=== PATIENT | male | born 1965 | race Caucasian/White ===

== ENCOUNTER → 2023-07-11 15:53 | Outpatient (REF) | payer OTHER, SELFPAY | LOC: PAVMRI 15:53 | PROVIDERS: ATTENDING PHYSICIAN Pain Medicine Interventional Pain Medicine; FAMILY PHYSICIAN Internal Medicine | DX: M54.16 Radiculopathy, lumbar region (principal) | CPT/HCPCS: 72148 ==

== ENCOUNTER 2023-09-25 06:15 | Inpatient (IN) | payer OTHER, SELFPAY ==
--- NOTE | 2023-09-07 09:51 | CM ---
Patient is scheduled for lumbar spine surgery on 09/25/23. Spoke with patient prior to surgery via telephone. Introduced role of the Orthopedic Navigator. Patient reports that he lives with his and adult daughter. He currently functions
independently. He occasionally uses a cane and also has a rolling walker, shower seat and grab bars in the shower and around toilet. He has never had VN services. PCP is Chadwick Coker.
Discussed orthopedic program, post surgical plans and tentative plan for patient to return home when directed by surgeon. Patient is in agreement with tentative plan and will have support from his and daughter when he goes home.
Plan: Orthopedic Navigator will remain available to assist with the care of patient and will reassess discharge needs after surgery.
[2023-09-19 14:04] VITALS: BMI 32.0
[2023-09-19 14:54] LABS: Hematocrit 49.5 % (39.0-52.0); Hemoglobin 17.1 g/dL (13.0-18.0); Mean Corp Hgb Conc. 34.5 g/dL (33.0-37.0); Mean Corpuscular Hgb 30.8 pg (27.0-31.0); Mean Corpuscular Volume 89.2 fL (80.0-94.0); Mean Platelet Volume 9.7 fL (7.4-10.4); Platelet Count 286 10^3/uL (130-400); Red Blood Cell Count 5.55 10^6/uL (4.70-6.10); Red Cell Dist. Width 13.2 % (11.5-14.5); White Blood Cell Count 9.7 10^3/uL (4.8-10.8)
[2023-09-19 15:01] VITALS: BMI 32.0
[2023-09-19 15:05] LABS: INR 0.95; PT 12.7 Sec (11.4-14.6)
[2023-09-19 15:10] LABS: ALT (SGPT) 33 U/L (0-50); AST (SGOT) 36 U/L (17-59); Albumin 4.9 g/dl (3.5-5.0); Alkaline Phosphatase 51 U/L (38-126); Blood Urea Nitrogen 16 mg/dl (9-20); Carbon Dioxide 27 mmol/L (22-30); Chloride 95 mmol/L (98-107); Estimated Creatinine Clearance 54 ml/min; Glucose 89 mg/dl (70-99); Potassium 4.3 mmol/L (3.5-5.1); Sodium 136 mmol/L (135-145); Total Bilirubin 0.7 mg/dl (0.2-1.3); Total Protein 7.2 g/dl (6.3-8.2); eGFR 46.73
[2023-09-25] VITALS (12 sets, daily range): BP systolic 113–147; BP diastolic 38–90; BMI 32.0
[2023-09-25] MEDS: LYRICA 150 MG PO (11:34)
[2023-09-25] MEDS: SKELAXIN 800 MG PO ×2 (11:35→19:52)
[2023-09-25] MEDS: TYLENOL 1000 MG PO ×2 (11:35→17:39)
[2023-09-25] MEDS: NORMOSOL-R 1000 IV (11:39)
--- NOTE | 2023-09-25 16:12 | W.PN.UPDATE ---
Update Note
Progress Note Update
Orthopedic Surgery Post-op Note:
Patient is s/p L2-3 laminectomy and microdiscectomy. Waking up in PACU, following commands. Moving feet. Sensation intact in BL LE. May get up as tolerated with assistance. PT/OT. DVT ppx with SCDs (no anticoagulation for 24 hrs post-op). Pain
control. Gaines to be removed within 24 hrs post-op.�
[2023-09-25] MEDS: DILAUDID 0.5 MG IV (16:55)
[2023-09-25] MEDS: DILAUDID 0.25 MG IV (17:20)
[2023-09-25] MEDS: NSS 1000 IV (17:21)
[2023-09-25] MEDS: LIPITOR 10 MG PO (17:40)
[2023-09-25] MEDS: ROXICODONE 5 MG PO (17:40)
--- NOTE | 2023-09-25 18:18 | PTCARENOTE ---
1730: Patient arrived to 2S. Full head to toe assessment completed. Neurovascular assessment completed. Aquacell on lower back clean dry and intact. IVF running per order. 2L NC with SpO2 greater then 92%. Family at bedside. Call arenas within reach
and bed in lowest position.
[2023-09-25] MEDS: SENOKOT 17.1999999999999993 MG PO (19:52)
[2023-09-25] MEDS: COLACE 100 MG PO (19:52)
--- NOTE | 2023-09-25 21:02 | OR.RPT ---
Operative Report
Operative Report
Orthopedic Surgery Operative Report
Date of Surgery: 09/25/23
PREOPERATIVE DIAGNOSES:
1. Lumbar spinal stenosis and disc herniation with radiculopathy, L2-3
POSTOPERATIVE DIAGNOSES:
1. Lumbar spinal stenosis and disc herniation with radiculopathy, L2-3
PROCEDURE PERFORMED:
1. L2-3 laminectomy and decompression with microdiscectomy
SURGEON: Dalton De Leon D.O.
DETECTIVE PRIVATE EYE: ELMER Bianchi, who helped with patient and limb positioning and retraction
ANESTHESIA: General endotracheal
COMPLICATIONS: None
ESTIMATED BLOOD LOSS: 20 cc
DRAINS: None
SPECIMEN: L2-3 disc material sent to pathology
IMPLANTS: None
INDICATION FOR SURGERY: This patient has an ongoing history of left lower extremity radiculopathy. Evaluation shows that the patient has the aforementioned diagnoses. The patient has failed extensive nonsurgical treatment and has elected to undergo
the aforementioned surgical procedures. The risks, benefits, alternatives, and indications were discussed with the patient in detail. The risks include, but are not limited to bleeding requiring transfusion, infection, need for reoperation, nerve or
blood vessel damage, anesthetic risks, need for further surgery, continued pain, blood clots in the legs, heart attack, stroke, , dural tear, nerve root injury, numbness, weakness, paralysis. The patient understands the risks and elected to
proceed. Informed consent was obtained preoperatively. The patient was optimized medically prior to surgery.
PROCEDURE IN DETAIL: The patient was identified in the preoperative holding area. The surgical site was appropriately marked. The patient was then brought to the operating room. General endotracheal anesthesia was achieved. The patient was
given routine preoperative intravenous antibiotics. The patient was turned to the prone position. Great care was taken to pad and protect all extremities and pressure points. The incision site was marked using fluoroscopy. The patient was prepped
and draped in the usual sterile manner. A preoperative surgical time-out was taken.
A standard midline approach to the lumbar spine was performed. The dissection was carried out to the spinal lamina. Dissection was then carried out laterally to expose the medial aspects of the facets. Xray was obtained to confirm levels.
Laminectomy was then carried out at L2-3. A partial left medial facetectomy was carried out. Hypertrophic ligamentum flavum was removed. The thecal sac and traversing nerve root were retracted and the disc herniation was encountered. The disc space
was incised using an 11-blade. Disc material was then removed and sent to lab as a specimen. After the offending disc was removed, the disc space was irrigated. The decompression was once again checked and both the thecal sac and traversing root
were found to be adequately decompressed.
The surgical site was copiously irrigated. 40mg of kennalog was placed over the thecal sac and traversing root at L2-3. The muscle and fascia were approximated using vicryl suture. Vancomycin powder was placed. The deep and superficial subcutaneous
tissues were closed using vicryl suture. Skin was approximated with monocryl suture. Dermabond was applied. A sterile dressing was placed. The patient was turned to the supine position and awoken from anesthesia. The patient tolerated the procedure
well with no immediate complications.
Throughout the surgery, neuromonitoring was used. All counts were correct at the end of the surgery.
Dalton De Leon D.O.
Orthopedic Surgery
[2023-09-25] MEDS: ANCEF 5 IV (22:15)
[2023-09-25] MEDS: LYRICA 75 MG PO (22:24)
[2023-09-26] MEDS: TYLENOL 1000 MG PO ×3 (00:27→12:37)
[2023-09-26] MEDS: ROXICODONE 10 MG PO ×3 (00:32→12:38)
[2023-09-26] MEDS: SKELAXIN 800 MG PO (03:26)
[2023-09-26 03:30] VITALS: BP 148/70
[2023-09-26] MEDS: ANCEF 5 IV (05:39)
[2023-09-26] MEDS: NSS 1000 IV (05:39)
[2023-09-26 05:45] VITALS: BMI 32.0
[2023-09-26 07:02] LABS: Hematocrit 47.1 % (39.0-52.0); Hemoglobin 16.3 g/dL (13.0-18.0)
[2023-09-26 07:32] LABS: Blood Urea Nitrogen 17 mg/dl (9-20); Calcium 9.3 mg/dl (8.4-10.2); Carbon Dioxide 24 mmol/L (22-30); Chloride 101 mmol/L (98-107); Estimated Creatinine Clearance 77 ml/min; Glucose 117 mg/dl (70-99); Potassium 4.6 mmol/L (3.5-5.1); Sodium 135 mmol/L (135-145); eGFR > 60.00
[2023-09-26 07:40] VITALS: BP 143/72
--- NOTE | 2023-09-26 07:43 | CM ---
Addendum entered by Nallely Walker 09/26/23 10:23:
Patient did well in therapy. He has no concerns about going home.
Original Note:
Reviewed chart and held rounds with PT, OT and RN. Patient had planned lumbar spine surgery with Dr. De Leon on 09/24. Met with patient at bedside. Confirmed information previously obtained for assessment and discussed discharge plans. Patient
continues to plan to return home at discharge. He will have support from his and daughter when he goes home. Reviewed that he will work with PT/OT this morning and that discharge needs will depend on his functional status. However, no needs
currently identified.
Patient has a cane, shower seat, back brace and rolling walker at home.
Patient will use [facility] pharmacy for discharge prescriptions.
[2023-09-26] MEDS: COLACE 100 MG PO (08:16)
[2023-09-26] MEDS: TOPROL XL 50 MG PO (08:16)
[2023-09-26] MEDS: SENOKOT 17.1999999999999993 MG PO (08:16)
[2023-09-26 09:55] VITALS: BP 131/71; BP 138/85; PULSE 76; O2SAT 97
--- NOTE | 2023-09-26 10:08 | W.PN.ORTHO ---
Today's Communication / Plan
-
d/c
Assessment
.
Distal Motor Intact: Yes
Dressing:
Clean, dry and intact.
Assessment:
PERNELL on PAT labs--counselled patient pre-op re: minimizing Ultram dose to <400mg/24h, hydration, no NSAIDs and decreasing protein nutritional supplements
--renal function back to baseline
Plan
.
Surgery / Date: L2-3 lami decompression w/ micro -Dr. De Leon 09/24
Activity:
Out of bed.
PT/OT
Discharge Plan: Home
Subjective
.
.:
Patient resting comfortably.
Vital Signs and Labs
.
Vital Signs and Labs:
Lab Results
09/26/23 06:13
09/26/23 06:13
Temp Pulse Resp BP Pulse Ox
98.8 F 78 18 143/72 97
09/26/23 07:40 09/26/23 07:40 09/26/23 07:40 09/26/23 07:40 09/26/23 07:40
PT 12.7 Sec (11.4-14.6) 09/19/23 13:57
INR 0.95 09/19/23 13:57
Physical Exam
-
HEENT: No pallor, cyanosis, or jaundice. Throat clear.
NECK: Supple. No JVD.
RESPIRATORY: Lungs clear to auscultation.
CVS: S1, S2 normal. RRR.� No murmur, rub or gallop.
ABDOMEN: Soft, non-tender. No distension. BS+/normal.
EXTREMITIES: strength equal, no calf pain with palpation
SUSPECT ARTIST: AOx3. No focal deficits. wire weaver helper grossly intact
[2023-09-26 10:10] VITALS: BP 149/85; PULSE 77; O2SAT 97
--- NOTE | 2023-09-26 10:26 | W.DS.TRANS ---
DC Summary - Scalp Treatment Specialist
-
Discharge Instructions:
Sleep Apnea Risk Intermediate
Discharge Diagnosis/Procedures L2-3 lami decompression w/ nolan -Dr. De Leon /
23
Diet As tolerated
Driving Restrictions No driving
Instructions:
Stand-Alone Forms: [facility] Lumbar Spine DC Instr
Changes to Home Medications: Yes
Discharge Medications:
DC Medications w/original date entered in [facility]
atorvastatin 10 mg tablet 10 mg PO DAILY High Cholesterol 09/26/22
baclofen 10 mg tablet 10 mg PO DAILY Muscle Spasms 09/26/22
metoprolol succinate 100 mg tablet,extended release 24 hr 100 mg PO DAILY Heart Failure 09/26/22
loratadine 10 mg tablet (Claritin) 10 mg PO DAILY Allergies 09/13/23
mupirocin 2 % topical ointment 1 applic topical BID infection prevention #1 tube 09/19/23
Saccharomyces boulardii 250 mg capsule (Florastor) 250 mg PO BID #1 cap 09/26/23
acetaminophen 325 mg tablet 650 mg (2 x 325 mg) PO QID #0 tabs 09/26/23
cephalexin 500 mg capsule 500 mg PO QID infection prevention #20 caps 09/26/23
dexamethasone 4 mg tablet 4 mg PO BID inflammation #6 tabs 09/26/23
docusate sodium 100 mg capsule (Colace) 100 mg PO BID stool softner #1 cap 09/26/23
gabapentin 300 mg capsule 300 mg PO HS sleep/pain #10 caps 09/26/23
magnesium hydroxide 400 mg/5 mL oral suspension (Milk of Magnesia) 30 ml PO HS PRN Constipation #1 mL 09/26/23
pantoprazole 20 mg tablet,delayed release (Protonix) 20 mg PO HS GI prophylaxis #30 tabs 09/26/23
sennosides 8.6 mg tablet (Senokot) 17.2 mg (2 x 8.6 mg) PO BID laxative #2 tabs 09/26/23
tizanidine 2 mg capsule 2 mg PO TID muscle relaxer/sleep #30 caps 09/26/23
tramadol 50 mg tablet 50 mg PO Q6H PRN 1 tab moderate pain, 2 if severe #30 tabs 09/26/23
Home Medication Changes
cephalexin 500 mg capsule 500 mg PO QID infection prevention #20 caps 09/26/23
dexamethasone 4 mg tablet 4 mg PO BID inflammation #6 tabs 09/26/23
gabapentin 300 mg capsule 300 mg PO HS sleep/pain #10 caps 09/26/23
pantoprazole 20 mg tablet,delayed release (Protonix) 20 mg PO HS GI prophylaxis #30 tabs 09/26/23
tizanidine 2 mg capsule 2 mg PO TID muscle relaxer/sleep #30 caps 09/26/23
tramadol 50 mg tablet 50 mg PO Q6H PRN 1 tab moderate pain, 2 if severe #30 tabs 09/26/23
Pending Results: No
[2023-09-26 11:00] VITALS: BP 130/62
[2023-09-26] MEDS: LYRICA PO (12:04)
[2023-09-26] MEDS: SKELAXIN PO (12:35)
== END 2023-09-26 14:09 | disposition home or self-care (01) | DRG 519 ==
LOC: 2 SOUTH 06:15
PROVIDERS: Physician Assistant Medical; ADMITTING PHYSICIAN Orthopaedic Surgery; FAMILY PHYSICIAN Internal Medicine
PROC: 01NB0ZZ Release Lumbar Nerve, Open Approach (ICD-10-PCS; 2023-09-25)
PROC: 0SB20ZZ Excision of Lumbar Vertebral Disc, Open Approach (ICD-10-PCS; 2023-09-25)
DX: M51.16 Intervertebral disc disorders with radiculopathy, lumbar region (principal); N17.9 Acute kidney failure, unspecified; M48.062 Spinal stenosis, lumbar region with neurogenic claudication; E66.9 Obesity, unspecified; E78.5 Hyperlipidemia, unspecified; I12.9 Hypertensive chronic kidney disease with stage 1 through stage 4 chronic kidney disease, or unspecified chronic kidney disease; N18.30 Chronic kidney disease, stage 3 unspecified; Z68.32 Body mass index [BMI] 32.0-32.9, adult; Z87.891 Personal history of nicotine dependence; Z88.6 Allergy status to analgesic agent
CPT/HCPCS: 88304; 72100; 76000; 80048; 80053; 85014; 85018; 85027; 85610; 86850; 86900; 86901; 87070; 93005; 97162; 97166; 97535